=== PATIENT | male | born 1955 | race Two or more races ===

== ENCOUNTER 2025-01-30 09:02 | Day surgery (SDC) | payer OTHER ==
[2025-01-30] MEDS ORDERED: MIDAZOLAM HCL 2 MG/2 ML VIAL IV ONE (12:00)
[2025-01-30] MEDS ORDERED: DIPHENHYDRAMINE HCL 50 MG/ML VIAL 1ML IV ONE (12:00)
[2025-01-30] MEDS ORDERED: fentaNYL CITRATE 50 MCG/ML AMPUL IV PUSH ONE (12:00)
== END 2025-01-30 13:50 | disposition home or self-care (01) ==
LOC: AMB-ENDOS
PROVIDERS: ATTEND Surgery
DX: D12.5 Benign neoplasm of sigmoid colon (principal); K57.30 Diverticulosis of large intestine without perforation or abscess without bleeding; K63.5 Polyp of colon; Z88.6 Allergy status to analgesic agent